=== PATIENT | female | born 1975 | race Caucasian/White ===

== ENCOUNTER 2017-07-23 10:25 | Outpatient (CLI) | payer BC ==
[~2017-07-23] VITALS: Ht 167.6 cm; Wt 74.8 kg
[2017-07-23] MEDS ORDERED: NS 1,000 ML IV ONE (10:30)
[2017-07-23] MEDS ORDERED: PROPOFOL 200 MG/20 ML VIAL As Ordered ONE (11:37)
[2017-07-23] MEDS ORDERED: LIDOCAINE 2% INJ 100 MG/5 ML SDV (FOR ANES.) As Ordered ONE (11:37)
[2017-07-23] MEDS ORDERED: ASPI81TA85 PO (11:38)
--- NOTE | 2017-07-23 12:49 | ROOR ---
Patient Name: Radha Tovar Procedure Date: 07/23/2017 12:19 PM Date of : 1975 Age: 41 Room: [facility] Gender: Female Note Status: Finalized Procedure: Colonoscopy Indications: High risk colon cancer surveillance: Personal history of colon cancer Providers: Ahsan NUÑEZ MD Referring MD: LINDA RIOS MD Requesting Provider: Medicines: Monitored Anesthesia Care Complications: No immediate complications. Procedure: Pre-Anesthesia Assessment: - The heart rate, respiratory rate, oxygen saturations, blood pressure, adequacy of pulmonary ventilation, and response to care were monitored throughout the procedure. The Colonoscope was introduced through the anus and advanced to the cecum, identified by appendiceal orifice and ileocecal valve. The colonoscopy was performed without difficulty. The patient tolerated the procedure well. The quality of the bowel preparation was good. Findings: The perianal and digital rectal examinations were normal. There was evidence of a prior functional end-to-end colo-colonic anastomosis in the recto-sigmoid colon. This was patent and was characterized by healthy appearing mucosa. The anastomosis was traversed. - Anastomosis appears mildly stenotic and tortuous. A 3 - 4 mm polyp was found in the recto-sigmoid colon. The polyp was sessile. The polyp was removed with a cold snare. Resection and retrieval were complete. The exam was otherwise without abnormality on direct and retroflexion views. Impression: - A mildly stenotic, but patent functional end-to-end colo-colonic anastomosis at 14 cm from anal verge, characterized by healthy appearing mucosa. - One 3 - 4 mm polyp on the rectal side of the anastomosis, removed with a cold snare. Resected and retrieved. - The examination was otherwise normal on direct and retroflexion views. Recommendation: - Repeat colonoscopy in 1 year for surveillance. - Telephone endoscopist for pathology results in 2 weeks. Ahsan Nuñez MD Ahsan NUÑEZ MD 07/23/2017 12:49:10 PM This report has been signed electronically. Number of Addenda: 0 Note Initiated On: 07/23/2017 12:19 PM Estimated Blood Loss: Estimated blood loss: none.
[2017-07-23 13:11] VITALS: BP 107/66
== END 2017-07-23 13:31 | disposition home or self-care (01) ==
LOC: M OPP 10:25
PROVIDERS: ATTEND Internal Medicine Gastroenterology
DX: Z12.11 Encounter for screening for malignant neoplasm of colon (principal); D12.7 Benign neoplasm of rectosigmoid junction; Z85.038 Personal history of other malignant neoplasm of large intestine; Z98.0 Intestinal bypass and anastomosis status; Q43.8 Other specified congenital malformations of intestine; K56.69 Other intestinal obstruction; Z87.19 Personal history of other diseases of the digestive system; Z80.3 Family history of malignant neoplasm of breast; Z80.52 Family history of malignant neoplasm of bladder; Z80.0 Family history of malignant neoplasm of digestive organs

== ENCOUNTER 2018-10-11 10:59 | Day surgery (SDC) | payer BC ==
[~2018-10-11 10:59] MED LIST: NS 1,000 ML IV
[2018-10-11] MEDS ORDERED: PROPOFOL 200 MG/20 ML VIAL As Ordered (12:51)
== END 2018-10-11 13:25 | disposition home or self-care (01) ==
LOC: M OPP 10:59
DX: Z12.11 Encounter for screening for malignant neoplasm of colon (principal); Z85.038 Personal history of other malignant neoplasm of large intestine; K57.30 Diverticulosis of large intestine without perforation or abscess without bleeding; Z98.0 Intestinal bypass and anastomosis status
CPT/HCPCS: 45378

== ENCOUNTER → 2022-02-13 | Outpatient (CLI) | payer BC ==
[~2022-02-13] MED LIST changes: +ASPI81TA86 PO; +MAGN400C PO; +METH25TAB PO; +MULT1TAB10 PO; -NS 1,000 ML IV; +VITA100093 PO; +VITATAB73 PO
== END ==
LOC: M LABSMTC 10:49
PROVIDERS: ATTEND Anesthesiology
DX: Z01.812 Encounter for preprocedural laboratory examination (principal); Z20.822 Contact with and (suspected) exposure to COVID-19

== ENCOUNTER 2022-02-18 11:02 | Day surgery (SDC) | payer BC ==
[~2022-02-18] VITALS: Ht 165.1 cm; Wt 78.9 kg
[~2022-02-18 11:02] MED LIST changes: +LIDOCAINE 2% 100MG/5ML SDV (FOR ANES.) As Ordered ONE; +propofoL 200 MG/20 ML VIAL As Ordered ONE
[2022-02-18] MEDS ORDERED: NS 1,000 ML IV ONE (12:30)
[2022-02-18] MEDS ORDERED: propofoL 200 MG/20 ML VIAL As Ordered ONE (13:10)
[2022-02-18 13:35] VITALS: BP 134/76
== END 2022-02-18 13:40 | disposition home or self-care (01) ==
LOC: M OPP 11:02
PROVIDERS: ATTEND Internal Medicine Gastroenterology
DX: D12.2 Benign neoplasm of ascending colon (principal); D12.3 Benign neoplasm of transverse colon; K57.30 Diverticulosis of large intestine without perforation or abscess without bleeding; Z98.0 Intestinal bypass and anastomosis status; Z80.0 Family history of malignant neoplasm of digestive organs; Z85.038 Personal history of other malignant neoplasm of large intestine

== ENCOUNTER 2024-09-25 08:57 | Day surgery (SDC) | payer BC ==
[~2024-09-25] VITALS: Ht 166.4 cm; Wt 79.4 kg
[~2024-09-25 08:57] MED LIST changes: +NS 250 ML IV ONE; +[UNRECOGNIZED DRUG - CODE] PO
[2024-09-25 11:05] VITALS: TEMP 97.1
[2024-09-25 11:24] VITALS: BP 116/70; O2SAT 100
== END 2024-09-25 11:25 | disposition home or self-care (01) ==
LOC: M OPP 08:57
PROVIDERS: ATTEND Internal Medicine Gastroenterology
DX: Z12.11 Encounter for screening for malignant neoplasm of colon (principal); K57.30 Diverticulosis of large intestine without perforation or abscess without bleeding; K64.8 Other hemorrhoids; Z85.038 Personal history of other malignant neoplasm of large intestine; Z98.0 Intestinal bypass and anastomosis status; E05.00 Thyrotoxicosis with diffuse goiter without thyrotoxic crisis or storm; Z79.899 Other long term (current) drug therapy; Z90.49 Acquired absence of other specified parts of digestive tract